=== PATIENT | female | born 1985 | race American Indian/Alaskan Native ===

== ENCOUNTER 2016-08-29 08:54 | Outpatient (CLI) | payer BC ==
--- NOTE | 2016-08-29 13:38 | Ultrasound Report ---
TRANSABDOMINAL AND TRANSVAGINAL PELVIC ULTRASOUND: 08/29/16 08:54:00 CLINICAL: Pelvic pain. FINDINGS: Transabdominal and transvaginal pelvic ultrasound demonstrated a normal uterus measuring 10.1 x 3.3 x 4.8 cm. Normal uterine contour and echogenicity.The endometrium is normal and measures 5.0 mm AP thickness. An IUD is identified in the uterine cavity in normal position with the tip near the fundus. Normal ovaries with small follicles. The right ovary measures 2.8 x 1.7 x 1.8cm. The left ovary measures 2.8 x 1.8 x 2.5cm. No adnexal mass. No free fluid. Normal urinary bladder. IMPRESSION: Normal pelvis with an IUD in the uterus.
== END 2016-08-29 08:55 | disposition home or self-care (01) ==
LOC: SPVIMAG 08:54
PROVIDERS: ATTEND Pediatrics
DX: R10.2 Pelvic and perineal pain (principal); Z97.5 Presence of (intrauterine) contraceptive device
CPT/HCPCS: 76830; 76856